=== PATIENT | female | born 1940 | race Caucasian/White ===

== ENCOUNTER 2018-02-15 05:06 | Observation (INO) ==
--- NOTE | 2018-02-07 14:03 | Anesthesiology Progress Note ---
Date of Service February 07, 2018 Anesthesia Post Procedure Notes Mental Status: alert / awake / arousable and participated in evaluation Nausea / Vomiting: adequately controlled Pain: adequately controlled Airway Patency, RR, SpO2: stable & adequate BP & HR: stable & adequate Hydration State: stable & adequate
--- NOTE | 2018-02-14 13:54 | Anesthesiology Consultation ---
Date of Service February 14, 2018 Assessment & Plan (1) Encounter for pre-operative examination: Chart Review Chart Review: Optimized for Surgery and patient not seen in Pre Admission Testing Consults Requested none Cardiology preop exam 12/11/2017. " No active cardiovascular issues identified. Left heart cath performed November 2017 2/2 abnormal nuclear stress test. Does not have any active angina symptoms. Proposed surgery is low risk. Patient's revised cardiovascular risk index is 1, which translates into 0.9% risk of MACE. No further CV workup is indicated. Teaching & Discussion Pre-Anesthesia Teaching/Discussion Notes: Instructed NPO after midnight before surgery,except medications with 15 cc of water. Medication instructions provided according to the PAT guidelines. History Surgery Operation Date: 02/15/18 07:45 Proposed Procedures p C6 Corpectomy, C5-C7 Anterior Cervical Discectomy Fusion - Chandan Thomason DO Height/Weight Height: 1.47 m Weight: 96.334 kg Allergies Allergy/AdvReac Type Severity Reaction Status Date / Time atorvastatin Allergy ITCH, Verified 01/29/18 09:34 COUGH AND AIRWAY SWELLING rosuvastatin [From Crestor] Allergy ITCH AND Verified 01/29/18 09:34 COUGH topiramate [From Topamax] Allergy ITCH AND Verified 01/29/18 09:34 COUGH alendronate sodium AdvReac Cough Verified 01/29/18 09:34 temazepam AdvReac Cough Verified 01/29/18 09:34 trospium AdvReac Cough Verified 01/29/18 09:34 Medications Home Medications Medication Instructions Recorded Confirmed Last Taken allopurinol 300 mg PO QAM #0 tab 10/24/17 01/29/18 Unknown amlodipine 10 mg PO QAM #0 tab 10/24/17 01/29/18 Unknown ascorbic acid (vitamin C) 1 tab PO QAM #0 10/24/17 01/29/18 Unknown aspirin 81 mg PO QAM #0 10/24/17 01/29/18 Unknown clopidogrel 75 mg PO QAM #0 tab 10/24/17 01/29/18 Unknown duloxetine 60 mg PO QAM #0 cap 10/24/17 01/29/18 Unknown ergocalciferol (vitamin D2) 50,000 unit PO WK #0 cap 10/24/17 01/29/18 Unknown fenofibric acid (choline) 135 mg PO QAM 90 Days #90 cap 10/24/17 01/29/18 Unknown [Trilipix] ferrous gluconate 324 mg PO QAM #0 tab 10/24/17 01/29/18 Unknown fluticasone [Flonase Allergy 2 spray INTRANASAL DAILY PRN #0 10/24/17 01/29/18 Unknown Relief] furosemide 40 mg PO BID #0 tab 10/24/17 01/29/18 Unknown gabapentin 400 mg PO TID #0 cap 10/24/17 01/29/18 Unknown glipizide 1 tab PO BID 90 Days #180 tab 10/24/17 01/29/18 Unknown hydrocodone-acetaminophen 1 tab PO Q4 PRN #0 tab 10/24/17 01/29/18 Unknown irbesartan 300 mg PO QAM 90 Days #90 tab 10/24/17 01/29/18 Unknown isosorbide mononitrate 60 mg PO QAM #0 tab 10/24/17 01/29/18 Unknown levothyroxine 75 mcg PO QAM #0 10/24/17 01/29/18 Unknown meclizine 25 mg PO DAILY PRN 10 Days #30 tab 10/24/17 01/29/18 Unknown metoprolol tartrate 50 mg PO BID #0 tab 10/24/17 01/29/18 Unknown nitroglycerin 1 tab SUBLINGUAL DIRECTED PRN 10/24/17 01/29/18 Unknown #0 btl omega 4-osd-ngw-fish oil [Fish Oil] 1 tab PO QAM #0 cap 10/24/17 01/29/18 Unknown omeprazole 20 mg PO BID #0 cap 10/24/17 01/29/18 Unknown Past Medical History Medical History Chronic kidney disease (CKD) Coronary artery disease Dementia Diabetes mellitus, type 2 Exertional dyspnea Gout Hearing deficit History of GI bleed Hyperlipidemia Hypertension Hypothyroid Obesity Osteoarthritis Uses prosthesis Past Surgical History Surgical History History of arthroscopy of right shoulder History of cardiac cath CATH DONE AT [facility] IN [id number], STENT PLACED, PATIENT DOES NOT KNOW LOCATION; PATIENT DENIES THAT HE HAD [place], STATES CATH DONE D/T CHEST PAIN. FOLLOWS WITH DR SERNA AT [place] (RCA stent found on chart review) History of carpal tunnel release BILATERAL X2 History of cataract surgery History of colonoscopy History of esophagogastroduodenoscopy (EGD) History of hysterectomy STOP BANG Total 6 Social History Smoking Status: Never smoker Hx Alcohol Use: No Hx Substance Use: No Testing Laboratory Results Labs from 02/08/18 (from [facility]). H/H 11.6/36. Platelets 333. Na 143, K 4.2, Cl 100, bicarb 30 Electrocardiogram Date: 10/11/17 Findings: + SB @ (59) septal infarct. Chest X-Ray Date: 10/26/17 Findings: + cardiomegaly Stable appearance of chest. No congestive changes. Echocardiogram Date: 08/20/17 EF: 55-60% LV Function: normal grade 1 LV diastolid dysfunction. Mild to mod AI. mild LAE. Cardiac Catheterization Date: 11/09/17 Patent RCA stent. 50% mid RCA stenosis was also noted. LEF had diffuse 50% midvessel stenosis. Due to diffuse small vessel disease, medical management was recommended.
[2018-02-15] MEDS ORDERED: ACETAMINOPHEN 500 MG TAB PO SCH (06:00)
[2018-02-15] MEDS ORDERED: CEFAZOLIN 2000MG 2,000 MG/15 ML SYR IV SCH (06:00)
[2018-02-15] MEDS ORDERED: CeleBREX 200 MG CAP PO SCH (06:00)
[2018-02-15] MEDS ORDERED: LACTATED RINGER'S 1,000 ML IV SCH (06:00)
[2018-02-15] MEDS ORDERED: LIDOCAINE HCL 2% 2 ML VIAL/AMP(20MG/ML) INFIL ONE (06:50)
[2018-02-15] MEDS ORDERED: PROPOFOL IV EMULSION 10 MG/ML 20 ML VIAL IV ONE (06:50)
[2018-02-15] MEDS ORDERED: ROCURONIUM BROMIDE 10 MG/ML 5 ML VIAL IV ONE (06:50)
[2018-02-15] MEDS ORDERED: fentaNYL citrate 100 MCG/2 ML VIAL ONE ×3 (06:50→09:36)
[2018-02-15] MEDS ORDERED: DEXAMETHASONE SOD INJ 4 MG/ML VIAL ONE ×2 (06:50→08:45)
[2018-02-15] MEDS ORDERED: ONDANSETRON INJ 2 MG/ML 2 ML VIAL ONE ×2 (06:50→09:31)
[2018-02-15] MEDS ORDERED: BACITRACIN INJ 50,000 UNIT VIAL ONE (07:18)
--- NOTE | 2018-02-15 07:36 | History & Physical Bridge Note ---
Date of Service February 15, 2018 History & Physical Bridge Note I have examined the patient, reviewed the History & Physical and in the interval since the performance of the History & Physical I have noted the following changes of clinical significance: no changes noted
--- NOTE | 2018-02-15 07:38 | History & Physical Report ---
Date of Service February 15, 2018 Assessment & Plan (1) Cervical stenosis of spinal canal: Cervical spinal stenosis with neurogenic claudication. Plan C6 corpectomy ACDF C5 C7 History of Present Illness Chief Complaint: Neck and arm pain Primary Care Provider: Flakita Bui This is a 77-year-old female with a history of neck and arm pain. After failing extensive course of nonoperative care she is pursuing surgical intervention. Allergies Allergy/AdvReac Type Severity Reaction Status Date / Time atorvastatin Allergy ITCH, Verified 01/29/18 09:34 COUGH AND AIRWAY SWELLING rosuvastatin [From Crestor] Allergy ITCH AND Verified 01/29/18 09:34 COUGH topiramate [From Topamax] Allergy ITCH AND Verified 01/29/18 09:34 COUGH alendronate sodium AdvReac Cough Verified 01/29/18 09:34 temazepam AdvReac Cough Verified 01/29/18 09:34 trospium AdvReac Cough Verified 01/29/18 09:34 Home Medications Home Medications Medication Instructions Recorded Confirmed Type allopurinol 300 mg PO QAM #0 tab 10/24/17 02/15/18 History amlodipine 10 mg PO QAM #0 tab 10/24/17 02/15/18 History ascorbic acid (vitamin C) 1 tab PO QAM #0 10/24/17 02/15/18 History aspirin 81 mg PO QAM #0 10/24/17 02/15/18 History clopidogrel 75 mg PO QAM #0 tab 10/24/17 02/15/18 History duloxetine 60 mg PO QAM #0 cap 10/24/17 02/15/18 History ergocalciferol (vitamin D2) 50,000 unit PO WK #0 cap 10/24/17 02/15/18 History fenofibric acid (choline) 135 mg PO QAM 90 Days #90 cap 10/24/17 02/15/18 History [Trilipix] ferrous gluconate 324 mg PO QAM #0 tab 10/24/17 01/29/18 History fluticasone [Flonase Allergy 2 spray INTRANASAL DAILY PRN #0 10/24/17 01/29/18 History Relief] furosemide 40 mg PO BID #0 tab 10/24/17 02/15/18 History gabapentin 400 mg PO TID #0 cap 10/24/17 02/15/18 History glipizide 1 tab PO BID 90 Days #180 tab 10/24/17 02/15/18 History hydrocodone-acetaminophen 1 tab PO Q4 PRN #0 tab 10/24/17 02/15/18 History irbesartan 300 mg PO QAM 90 Days #90 tab 10/24/17 02/15/18 History isosorbide mononitrate 60 mg PO QAM #0 tab 10/24/17 02/15/18 History levothyroxine 75 mcg PO QAM #0 10/24/17 02/15/18 History meclizine 25 mg PO DAILY PRN 10 Days #30 tab 10/24/17 02/15/18 History metoprolol tartrate 50 mg PO BID #0 tab 10/24/17 02/15/18 History nitroglycerin 1 tab SUBLINGUAL DIRECTED PRN 10/24/17 01/29/18 History #0 btl omega 5-fzb-jsl-fish oil [Fish Oil] 1 tab PO QAM #0 cap 10/24/17 02/15/18 History omeprazole 20 mg PO BID #0 cap 10/24/17 02/15/18 History Past Med/Surg History Social History Feels Safe at Home: Yes Safety Concerns: Feels Safe At This Time Smoking Status: Never smoker Hx Alcohol Use: No Hx Substance Use: No Beliefs That Will Affect Care: None Preferred Language: Cypriot Communication Ability: Effective Physical Exam 2 Vital Signs (Past 24 Hours): Last Vital Signs Temp 36.9 C 02/15/18 05:52 Pulse 68 02/15/18 05:52 Resp 22 02/15/18 05:52 BP 187/57 H 02/15/18 05:52 Pulse Ox 96 02/15/18 05:52 Results & Data Medications Administered Acetaminophen (Tylenol) 1,000 mg PO PREOP TODD Stop: 02/15/18 18:00 Last Admin: 02/15/18 06:26 Dose: 1,000 mg Celecoxib (Celebrex) 200 mg PO PREOP TODD Stop: 02/15/18 18:00 Last Admin: 02/15/18 06:25 Dose: 200 mg Lactated Ringer's (Lr) 1,000 mls @ 15 mls/hr IV .Q24H TODD Stop: 02/16/18 05:59 Last Admin: 02/15/18 06:25 Dose: 15 mls/hr
[2018-02-15] MEDS ORDERED: HYDROmorphone INJ 1 MG/ML SYRINGE IV PRN (07:49)
[2018-02-15] MEDS ORDERED: ePHEDrine sulfate 50 MG/ML AMP IV PRN (07:49)
[2018-02-15] MEDS ORDERED: ATROPINE SULFATE 0.1 MG/ML 5ML SYR IV PRN (07:49)
[2018-02-15] MEDS ORDERED: ePHEDrine sulfate 50 MG/ML SYR ONE (08:20)
[2018-02-15] MEDS ORDERED: HYDROmorphone INJ 2 MG/ML SYR/VIAL ONE (08:23)
[2018-02-15] MEDS ORDERED: FLOSEAL HEMOSTATIC MATRIX 10ML TOP ONE (09:29)
[2018-02-15] MEDS ORDERED: PHENYLEPHRINE 100MCG/ML 5ML SYR ONE (09:30)
[2018-02-15] MEDS ORDERED: ePHEDrine sulfate 50 MG/ML AMP ONE (09:31)
--- NOTE | 2018-02-15 09:34 | Operative Report ---
Post Operative Report Date of Surgery February 15, 2018 Pre & Post Diagnosis Cervical spinal stenosis with myeloradiculopathy Operation Date: 02/15/18 07:45 <No data on this case meets the specified criteria> Procedure Operation Date: 02/15/18 07:45 Actual Procedures #1 anterior cervical discectomy bilateral foraminotomies C5-6. #2 anterior cervical arthrodesis C5-6 per #3 placement of 10 mm cortical allograft filled with DBM C5-6. #4 application of raymond plate and screws across C5-6. Surgeon Chandan Thomason, DO [employer] Steve Guzman Estimated Blood Loss 75 Findings Consistent with Post-Op Diagnosis Specimens None Description of Procedure Patient was met with preoperatively case discussed all questions addressed. After informed consent obtained patient was taken to the operative suite underwent intubation and placed in the spine position injection table of the head in the [place] headholder. All bony prominences well-padded eyes inspected to ensure no external pressure placed upon. This point the anterior cervical spine was prepped and draped in a sterile fashion. The assistance of fluoroscopy identified the C5-6 space. Sharp dissection with the assistance of bipolar cautery performed on November exposing the anterior cervical spine from C5- C6. I was unable to expose C6-7 secondary to the patient's body habitus and anatomy. Subsequently elected to perform C6 decompression only. Complete discectomy was performed up to the uncovertebral joints bilaterally. [place] distracting pins utilized to assist in his visualization. I did remove all posterior annular fibers longitudinal ligament performed bilateral foraminotomies. After decompression and plates were burred to subcortical bleeding bone and a 10 mm cortical allograft filled with DBM tapped in position. 5 complete and screws was then applied with the assistance of fluoroscopy. Incision was then copiously irrigated explored there is no damage to surrounding structures remaining bleeding. 10 round JANNY drain inserted. Incision was then closed with 2 Vicryl in a fashion of 4 Monocryl for fashion closure Steri-Strips sterile dressings placed. Patient will continue PACU stable disc. Please note Steve Guzman was present at the entire procedure involved in patient positioning complex portions of the surgery and fashion closure. I attest to the content of the Intraoperative Record and any orders documented therein. Any exceptions are noted below.
--- NOTE | 2018-02-15 09:59 | Fluoroscopy Report ---
Cervical SPINE, INTRAOPERATIVE FLUOROSCOPY HISTORY: C5-C6 ACDF. FLUOROSCOPY TIME: 14 seconds. FINDINGS: Intraoperative fluoroscopy was provided for the lumbar spine. 3 fluoroscopic spot images we re obtained. Anterior cervical discectomy and fusion at C5-C6. The hardware appears intact. The final image demonstrates a sponge anterior to the discectomy. The surgeon was aware of this finding. IMPRESSION: Fluoroscopy provided for a C5-C6 ACDF. Electronically signed by: Anshul Mondragon M.D. 02/15/2018 9:57 AM
[2018-02-15] MEDS ORDERED: ESMOLOL HCL INJ 10 MG/ML 10ML VIAL IV ONE (10:16)
--- NOTE | 2018-02-15 10:56 | Anesthesiology Progress Note ---
Date of Service February 15, 2018 Anesthesia Post Procedure Vital Signs Vital Signs: Temp Pulse Resp BP Pulse Ox 02/15/18 10:40 73 20 160/82 H 96 02/15/18 10:30 77 18 143/68 H 96 02/15/18 10:20 80 18 143/68 H 93 02/15/18 10:10 80 18 165/70 H 93 02/15/18 10:00 91 H 18 122/51 L 95 02/15/18 09:50 36.5 C 95 H 20 187/65 H 95 02/15/18 05:52 36.9 C 68 22 187/57 H 96 Notes Mental Status: alert / awake / arousable Patient Amnestic to Procedure: Yes Nausea / Vomiting: adequately controlled Pain: adequately controlled Airway Patency, RR, SpO2: stable & adequate BP & HR: stable & adequate Hydration State: stable & adequate Anesthetic Complications: no major complications apparent and Pt Satisfied with anesthetic care
[2018-02-15] MEDS ORDERED: ONDANSETRON INJ 2 MG/ML 2 ML VIAL IV PRN (10:59)
[2018-02-15] MEDS ORDERED: FLUTICASONE PROPIONATE NA SPR 16 GM BTL PRN (10:59)
[2018-02-15] MEDS ORDERED: DiphenhydrAMINE HCL 50 MG/ML VIAL IV PRN (10:59)
[2018-02-15] MEDS ORDERED: NALOXONE HCL 0.4 MG/1 ML VIAL/CARP IV PRN (10:59)
[2018-02-15] MEDS ORDERED: ACETAMINOPHEN 1,000 MG/100 ML VIAL IV PRN (10:59)
[2018-02-15] MEDS ORDERED: LORazepam 0.5 MG TAB PO PRN (10:59)
[2018-02-15] MEDS ORDERED: LORazepam 0.5 MG/1 ML VIAL IV PRN (10:59)
[2018-02-15] MEDS ORDERED: MECLIZINE HCL 25 MG TAB PO PRN (10:59)
[2018-02-15] MEDS ORDERED: DEXAMETHASONE SOD PHOSPHATE 8 MG in SYRINGE 0 ML IV PRN (10:59)
[2018-02-15] MEDS ORDERED: HYDROmorphone INJ 0.5 MG/0.5 ML SYR IV PRN (10:59)
[2018-02-15] MEDS ORDERED: OXYCODONE HCL IR 5 MG TAB (IMMEDIATE RELEASE) PO PRN (10:59)
[2018-02-15] MEDS ORDERED: RACEPINEPHRINE 2.25% NEBU SOLN 0.5 ML VIAL INH PRN (10:59)
[2018-02-15] MEDS ORDERED: MAGNESIUM HYDROXIDE SUSP 30 ML UDC PO PRN (10:59)
[2018-02-15] MEDS ORDERED: NITROGLYCERIN SL 0.4 MG/TAB TAB SL PRN (10:59)
[2018-02-15] MEDS ORDERED: ALLOPURINOL 300 MG TAB PO STA (11:15)
[2018-02-15] MEDS ORDERED: DULOXETINE HCL 60 MG CAP PO STA (11:16)
[2018-02-15] MEDS ORDERED: AMLODIPINE BESYLATE 5 MG TAB PO STA (11:16)
[2018-02-15] MEDS: ISOSORBIDE MONO EXTENDED REL 60 MG TABCR PO SCH (13:07)
[2018-02-15] MEDS: IRBESARTAN 150 MG TAB PO SCH (13:07)
[2018-02-15] MEDS: SCOPOLAMINE 1.5 MG TDSY TD SCH (13:07)
[2018-02-15] MEDS: GABAPENTIN 400 MG CAP PO SCH ×2 (14:05→20:53)
[2018-02-15] MEDS: SODIUM CHLORIDE 0.9% 1000ML 1,000 ML IV SCH (14:05)
[2018-02-15] MEDS: CHECK SCOPOLAMINE PATCH PLACEMENT SCH (16:21)
[2018-02-15] MEDS: FUROSEMIDE 40 MG TAB PO SCH (16:22)
[2018-02-15] MEDS: glipiZIDE 5 MG TAB PO SCH (16:23)
[2018-02-15] MEDS ORDERED: CEFAZOLIN IV SCH (20:00)
[2018-02-15] MEDS: METOPROLOL TARTRATE 50 MG TAB PO SCH (20:53)
[2018-02-15] MEDS: PANTOprazole 40 MG TAB PO SCH (20:53)
[2018-02-15] MEDS: DOCUSATE SODIUM 100 MG CAP PO SCH (20:53)
[2018-02-15] MEDS: CEFAZOLIN 2000MG 2,000 MG/15 ML SYR IV SCH (20:53)
[2018-02-16] MEDS: CHECK SCOPOLAMINE PATCH PLACEMENT SCH ×2 (00:56→09:23)
[2018-02-16] MEDS: SODIUM CHLORIDE 0.9% 1000ML 1,000 ML IV SCH ×2 (01:03→13:13)
[2018-02-16] MEDS: CEFAZOLIN 2000MG 2,000 MG/15 ML SYR IV SCH ×2 (03:58→11:32)
[2018-02-16] MEDS ORDERED: LEVOTHYROXINE SODIUM 75 MCG TABLET PO SCH (06:30)
--- NOTE | 2018-02-16 07:57 | Discharge Instructions ---
Discharge Plan Discharge Items Patient Disposition: Home - Self-Care Reason For Visit: Cervical Spinal Stenosis Discharge Diagnosis: Cervical stenosis Discharge Goals: Improve function Activity: Resume your previous activity Lifting: No more than 5 pounds Non-emergency contact: Surgeon Call non-emergency contact if: your pain is worsening Follow-up/Referrals: Flakita Bui PA-C [Primary Care Provider] - Diet: Carb Count or DM1 Prescriptions: New oxycodone 5 mg Tablet 5 - 10 mg PO Q4H PRN (Reason: pain (scale score 4-6)) Qty: 30 RF: 0 bisacodyl 5 mg Tablet,Delayed Release (Dr/Ec) 5 mg PO DAILY PRN (Reason: constipation) Qty: 30 RF: 0 docusate sodium 100 mg Capsule 100 mg PO BID Qty: 60 RF: 0 Continue furosemide 40 mg Tablet 40 mg PO BID Qty: 0 RF: 0 ascorbic acid (vitamin C) 1,000 mg Tablet 1 tab PO QAM Qty: 0 RF: 0 gabapentin 400 mg Capsule 400 mg PO TID Qty: 0 RF: 0 clopidogrel 75 mg Tablet 75 mg PO QAM Qty: 0 RF: 0 aspirin 81 mg Tablet,Delayed Release (Dr/Ec) 81 mg PO QAM Qty: 0 RF: 0 isosorbide mononitrate 60 mg Tablet Extended Release 24 Hr 60 mg PO QAM Qty: 0 RF: 0 meclizine 25 mg Tablet 25 mg PO DAILY PRN (Reason: Vertigo) 10 Days Qty: 30 RF: 0 amlodipine 10 mg Tablet 10 mg PO QAM Qty: 0 RF: 0 hydrocodone-acetaminophen 7.5-325 mg Tablet 1 tab PO Q4 PRN (Reason: Pain) Qty: 0 RF: 0 metoprolol tartrate 50 mg Tablet 50 mg PO BID Qty: 0 RF: 0 nitroglycerin 0.4 mg Tablet, Sublingual 1 tab Sublingual DIRECTED PRN (Reason: Chest Pain) Qty: 0 RF: 0 omeprazole 20 mg Capsule,Delayed Release(Dr/Ec) 20 mg PO BID Qty: 0 RF: 0 allopurinol 300 mg Tablet 300 mg PO QAM Qty: 0 RF: 0 ergocalciferol (vitamin D2) 50,000 unit Capsule 50,000 unit PO WK Qty: 0 RF: 0 fluticasone [Flonase Allergy Relief] 50 mcg/actuation [place],Suspension 2 spray INTRANASAL DAILY PRN (Reason: Chest Pain) Qty: 0 RF: 0 irbesartan 300 mg Tablet 300 mg PO QAM 90 Days Qty: 90 RF: 3 glipizide 5 MG tablet 1 tab PO BID 90 Days Qty: 180 RF: 3 duloxetine 60 mg Capsule,Delayed Release(Dr/Ec) 60 mg PO QAM Qty: 0 RF: 0 ferrous gluconate 324 mg (38 mg iron) Tablet 324 mg PO QAM Qty: 0 RF: 0 fenofibric acid (choline) [Trilipix] 135 mg Capsule,Delayed Release(Dr/Ec) 135 mg PO QAM 90 Days Qty: 90 RF: 3 omega 9-svk-vff-fish oil [Fish Oil] 1,000 mg (120 mg-180 mg) Capsule 1 tab PO QAM Qty: 0 RF: 0 levothyroxine 75 mcg Capsule 75 mcg PO QAM Qty: 0 RF: 0 Visit Report Forms: [facility] Discharge Orders: Discharge Order (Routine); Ordered 02/16/18 Ordered By: Steve Guzman Admission Data Admit Date/Time: 02/15/18 10:42 Attending Provider: Chandan Thomason Admit Provider: Chandan Thomason Primary Care Provider: Flakita Bui Service: Surgical Services Other Pending Studies at Discharge: No
--- NOTE | 2018-02-16 08:24 | Discharge Summary ---
Date of Service February 16, 2018 Admission HPI (Per Admitting) This is a 77-year-old female with a history of neck and arm pain. After failing extensive course of nonoperative care she is pursuing surgical intervention. Discharge Data Procedures Performed Operation Date: 02/15/18 07:45 Actual Procedures p Anterior Cervical Discectomy Fusion C5-6(Not Applicable) - Chandan Thomason DO Hospital Course (1) Cervical stenosis of spinal canal: Patient was admitted to the hospital 02/15/2018 with diagnosis of cervical radiculopathy. She is brought to the operating room on 02/15/2018 underwent anterior cervical discectomy and fusion at C5-6. She was discharged to PACU in stable condition with a JANNY drain and Silva in place. She is placed in a hard cervical collar as well. She is transfer the orthopedic floor. She has not developed any numbness or tingling in the hands or arms. No tenderness in the calves. She is tolerating p.o. food at this point is ready for home discharge. Discharge Instructions Patient was to resume her prehospital medications. She is given oxycodone for pain control. She is avoid lifting any more than 5 pounds. She should change her dressing once daily until it is dry once is dry she may shower. She should wear her collar at all times except for showers and skin care. We will see her back in the office in 2 weeks or sooner if she develops any fevers chills or increased pain.
[2018-02-16] MEDS ORDERED: ASCORBIC ACID 500 MG TAB PO SCH (09:00)
[2018-02-16] MEDS ORDERED: ALLOPURINOL 300 MG TAB PO SCH (09:00)
[2018-02-16] MEDS ORDERED: ASPIRIN 81 MG ECTAB PO SCH (09:00)
[2018-02-16] MEDS ORDERED: FERROUS GLUCONATE 324 MG TAB PO SCH (09:00)
[2018-02-16] MEDS ORDERED: DULOXETINE HCL 60 MG CAP PO SCH (09:00)
[2018-02-16] MEDS ORDERED: AMLODIPINE BESYLATE 5 MG TAB PO SCH (09:00)
[2018-02-16] MEDS: SCOPOLAMINE 1.5 MG TDSY TD SCH (09:23)
[2018-02-16] MEDS: glipiZIDE 5 MG TAB PO SCH (09:23)
[2018-02-16] MEDS: IRBESARTAN 150 MG TAB PO SCH (09:24)
[2018-02-16] MEDS: DOCUSATE SODIUM 100 MG CAP PO SCH (09:25)
[2018-02-16] MEDS: ISOSORBIDE MONO EXTENDED REL 60 MG TABCR PO SCH (09:27)
[2018-02-16] MEDS: FUROSEMIDE 40 MG TAB PO SCH (09:27)
[2018-02-16] MEDS: GABAPENTIN 400 MG CAP PO SCH ×2 (09:28→13:16)
[2018-02-16] MEDS: METOPROLOL TARTRATE 50 MG TAB PO SCH (09:28)
[2018-02-16] MEDS: PANTOprazole 40 MG TAB PO SCH (09:29)
[2018-02-17] MEDS ORDERED: BISACODYL 5 MG TABEC PO PRN (09:38)
== END 2018-02-16 13:46 | disposition home or self-care (01) ==
LOC: ASU 05:06 → INTOOBSV 10:42 → 3E 10:42